=== PATIENT | female | born 2000 | race Hispanic/Latino ===

== ENCOUNTER 2023-10-24 10:50 | Emergency (ER) | payer SELFPAY ==
[~2023-10-24] VITALS: Ht 154.9 cm; Wt 79.4 kg
[2023-10-24 11:00] VITALS: TEMP 98.1
[2023-10-24] MEDS: ASPIRIN 81 MG CHEW TAB PO ONE (12:21)
[2023-10-24] MEDS: KETOROLAC TROMETHAMINE 30 MG/ML VIAL IV STA (12:22)
[2023-10-24 14:00] VITALS: PULSE 62; RESP 16; O2SAT 98
== END 2023-10-24 15:05 | disposition home or self-care (01) ==
LOC: FSED 10:52
DX: R06.02 Shortness of breath (principal); R07.89 Other chest pain; R94.31 Abnormal electrocardiogram [ECG] [EKG]
CPT/HCPCS: 71046; 80053; 80307; 81003; 81025; 84484; 85025; 85379; 93005; 99284; J1885